=== PATIENT | female | born 1970 | race Caucasian/White ===

== ENCOUNTER 2018-01-04 09:46 | Emergency (ER) | payer OTHER ==
[~2018-01-04] VITALS: Ht 157.5 cm; Wt 115.7 kg
[~2018-01-04 09:46] MED LIST: AGM875T PO; ALBU2.5V4 IH; BUME2TAB3 PO; BUPR300T51 PO; CLOT15CR4 TOP; DIPH50CA33 PO; DOXY100C2 PO; FLUO20CA42 PO; HYDR-3454 PO; HYDR-757 PO; NAPR-243 PO; ONDAN4ODT PO; OXYB5TAB9 PO; PRD20T PO; RNT150T PO; ZLP10T PO; [UNRECOGNIZED DRUG - CODE] IH
[2018-01-04] MEDS ORDERED: diphenhydrAMINE 50 MG/ML INJ (BENADRYL) IM ONE (11:30)
[2018-01-04] MEDS ORDERED: PROCHLORPERAZINE 10 MG/2ML INJ (COMPAZINE) IM ONE (11:30)
[2018-01-04] MEDS ORDERED: KETOROLAC 60 MG/2 ML VIAL IM ONE (11:30)
--- NOTE | 2018-01-04 11:33 | ED Headache ---
General Chief Complaint: Head/Cervical Problems Stated Complaint: HEADACHE,VOMITTING Nursing Triage Note: Pt reports headache since 0700. Pt also reports nausea Nursing Sepsis Screen: No Definite Risk Source: patient Exam Limitations: no limitations History of Present Illness Date Seen by Provider: Jan 04, 2018 Time Seen by Provider: 11:30 Initial Comments to ER with a headache since awakening at 0700 this morning. She vomited once. She states that the headache was rated at about a 7 out of 10 upon awakening. She thought she could go back to bed and feel better. She then woke up at about 9 AM with worsening headache. Decided she needed to come here. No history of headaches. She's had chills. her description is not of a thunderclap style headache. currently, she rates the pain at 4 out of 10 despite no treatment Timing/Duration: 4-6 hours Severity/Quality: moderate Location: global Prior Headaches/Recent Trauma: no recent headache/trauma Associated Symptoms: No confusion, No fatigue, No facial pain; fever/chills ( chills but no fever), flushing (flushed initially), nausea/vomiting; No seizures , No sinus infection, No stiff neck Allergies and Home Medications Allergies Coded Allergies: sulfamethoxazole (Unverified Allergy, Unknown, HIVES, 03/25/08) trimethoprim (Unverified Allergy, Unknown, HIVES, 03/25/08) Home Medications Albuterol Sulfate 2.5 Mg/3 Ml Vial.neb, 2.5 MG IH TID PRN for SHORTNESS OF BREATH, (Reported) Bupropion Hcl 300 Mg Tab.sr.24h, 300 MG PO DAILY, (Reported) Fluoxetine HCl 20 Mg Capsule, 20 MG PO DAILY, (Reported) Formoterol Fumarate 12 Mcg Inhp, 1 CAP IH UD, (Reported) Hydrocodone/Acetaminophen 1 Each Tablet, 1 EACH PO Q4H 1-2 tabs every 4-6 hours as needed for pain Prescribed by: CAROLEE FUENTES on 05/11/15 1021 Oxybutynin Chloride 5 Mg Tablet, 5 MG PO BID, (Reported) Patient Home Medication List Home Medication List Reviewed: Yes Review of Systems Constitutional: see HPI, chills Eyes: No Symptoms Reported; Denies Blurred Vision, Denies Foreign Body Sensation, Denies Pain Ears, Nose, Mouth, Throat: no symptoms reported Respiratory: no symptoms reported Cardiovascular: no symptoms reported Gastrointestinal: No abdominal pain; nausea, vomiting Genitourinary: no symptoms reported Musculoskeletal: no symptoms reported Skin: no symptoms reported Psychiatric/Neurological: See HPI, Headache Past Tdeixoh-Ushqsj-Kwdnlj Hx Patient Social History Alcohol Use: Denies Use Recreational Drug Use: Yes (marijuana) Smoking Status: Current Everyday Smoker Type Used: Cigarettes Recent Foreign Travel: No Contact w/Someone Who Travel: No Recent Infectious Disease Expo: No Recent Hopitalizations: Yes Immunizations Up To Date Tetanus Booster (TDap): Unknown Date of Pneumonia Vaccine: Mar 11, 1990 Past Medical History Surgeries: Yes (TUBAL LIGATION, BUNIONECTOMY, , VAGINAL SKIN REMOVAL) Appendectomy, Section, Orthopedic, Tubal Ligation Respiratory: Yes COPD Currently Using CPAP: Yes Currently Using BIPAP: Yes Cardiac: No Neurological: No Reproductive Disorders: No 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 Sexually Transmitted Disease: No HIV/AIDS: No Gastrointestinal: No Musculoskeletal: No Endocrine: No Cancer: No Psychosocial: Yes Anxiety, Depression Integumentary: No Blood Disorders: No Adverse Reaction/Blood Tranf: No Family Medical History Arthritis 19 FATHER 19 MOTHER Asthma 19 FATHER 19 MOTHER Cardiovascular disease 19 FATHER 19 MOTHER Completed stroke 19 FATHER Hypercholesterolemia 19 MOTHER Hypertension 19 MOTHER Kidney disease 19 MOTHER Myocardial infarction 19 MOTHER Physical Exam Vital Signs Vital Signs - First Documented 01/04/18 09:56 Temp 98.2 Pulse 88 Resp 18 B/P (MAP) 132/91 (105) Pulse Ox 98 O2 Delivery Room Air Capillary Refill : Less Than 3 Seconds Height, Weight, BMI Height: 5'2.00" Weight: 255lbs. 6.0oz. 115.568571rk; BMI Method:Actual General Appearance: WD/WN, no apparent distress HEENT: PERRL/EOMI, normal ENT inspection, TMs normal Neck: non-tender, full range of motion Cardiovascular: regular rate, rhythm, no murmur Respiratory: normal breath sounds, no respiratory distress, no accessory muscle use Extremities: normal range of motion, non-tender Psychiatric: alert, oriented x 3 Crainal Nerves: normal hearing, normal speech, PERRL Skin: normal color, warm/dry Comments she has no neurologic deficit Progress/Results/Core Measures Results/Orders My Orders Orders - ERYN CARDENAS APRN Ketorolac Injection (Toradol Injection) (01/04/18 11:30) Prochlorperazine Injection (Compazine In (01/04/18 11:30) Diphenhydramine Injection (Benadryl Inje (01/04/18 11:30) Ct Head Wo (01/04/18 11:26) Medications Given in ED Current Medications Medications Dose Ordered Sig/Dale Route Start Time Stop Time Status Last Admin Dose Admin Diphenhydramine HCl 25 mg ONCE ONCE IM 01/04/18 11:30 01/04/18 11:31 DC 01/04/18 11:43 25 MG Ketorolac Tromethamine 60 mg ONCE ONCE IM 01/04/18 11:30 01/04/18 11:31 DC 01/04/18 11:43 60 MG Prochlorperazine Edisylate 10 mg ONCE ONCE IM 01/04/18 11:30 01/04/18 11:31 DC 01/04/18 11:43 10 MG Vital Signs/I&O 01/04/18 09:56 Temp 98.2 Pulse 88 Resp 18 B/P (MAP) 132/91 (105) Pulse Ox 98 O2 Delivery Room Air Blood Pressure Mean: 105 Departure Communication (Admissions) 1303-alert and oriented feeling much better. Pain is now rated at 1 out of 10. No nausea or vomiting. No neurologic deficit, moves all extremities. No nuchal rigidity, very talkative and laughing and well-appearing. CT imaging was done within 6 hours of onset of headache so if this would have been the subarachnoid , this would likely have been seen on imaging Impression Primary Impression: Headache Disposition: 01 HOME, SELF-CARE Condition: Stable Departure-Patient Inst. Decision time for Depature: 12:59 Referrals: NO,LOCAL PHYSICIAN (PCP/Family) Primary Care Physician Patient Instructions: Headache, Adult (DC) Add. Discharge Instructions: 1. Return to ER for any concerns 2. Follow-up with your doctor next week 3.All discharge instructions reviewed with patient and/or family. Voiced understanding. ERYN CARDENAS APRN Jan 04, 2018 11:33
--- NOTE | 2018-01-04 12:42 | Diagnostic Imaging Report ---
PROCEDURE: CT head without contrast. TECHNIQUE: Multiple contiguous axial images were obtained through the brain without the use of intravenous contrast. DATE: January 04, 2018. COMPARISON: None. INDICATION: 47-year-old female, headaches and vomiting. FINDINGS: The ventricles and cerebral spinal fluid spaces are of normal size and configuration for the patient's age. There is no mass effect or midline shift. There is no acute intracranial hemorrhage. There is no abnormal extra-axial fluid collection. The visualized portions of the paranasal sinuses, mastoid air cells and middle ears are well aerated. IMPRESSION: 1. No identified acute intracranial abnormality. Dictated by: Dictated on workstation # [id number]
[2018-01-04 13:05] VITALS: BP 123/78
--- OUTSIDE RECORDS SUMMARY | 2018-01-04 18:17 | XMS REPORT ---
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 Name Role Phone CANDIS VILLAGRAN Unavailable PROBLEMS Type Condition ICD9-CM Code IKT33-FC Code Onset Dates Condition Status SNOMED Code Problem Benign paroxysmal positional vertigo 386.11 Active 867187440 Problem Nausea alone 787.02 Active [id number] ALLERGIES Substance Reaction Event Type Date Status Sulfa (sulfonamide Antibiotics) Swelling Non Drug Allergy October, Active SOCIAL HISTORY Never Assessed PLAN OF CARE Activity Details Follow Up prn Reason: VITAL SIGNS Height 62 in 2016-10-20 Weight 221 lbs 2016-10-20 Temperature 97.4 degrees Fahrenheit 2016-10-20 Heart Rate 92 bpm 2016-10-20 Respiratory Rate 18 2016-10-20 BMI 40.42 kg/m2 2016-10-20 Blood pressure systolic 132 mmHg 2016-10-20 Blood pressure diastolic 74 mmHg 2016-10-20 MEDICATIONS Medication Instructions Dosage Frequency Start Date End Date Duration Status PredniSONE 20 MG Orally Once a day 2 tablet 24h October, October, 5 days Active BuSpar Active Prozac Active RESULTS Name Result Date Reference Range Xray : Foot, Left 3 views (IN HOUSE) 2016-10-20 PROCEDURES Procedure Date Ordered Result Body Site X-RAY EXAM OF FOOT October 20, 2016 IMMUNIZATIONS No Known Immunizations MEDICAL (GENERAL) HISTORY Type Description Date Surgical History appendectomy Surgical History section Surgical History orthopedic surgery Surgical History wisdom teeth extraction Surgical History bunionectomy
== END 2018-01-04 13:05 | disposition home or self-care (01) ==
LOC: EDUNIT# 09:46 → ER 09:48
DX: R51 Headache (principal); J44.9 Chronic obstructive pulmonary disease, unspecified; F41.9 Anxiety disorder, unspecified; F32.9 Major depressive disorder, single episode, unspecified; F12.10 Cannabis abuse, uncomplicated; F17.210 Nicotine dependence, cigarettes, uncomplicated; Z98.51 Tubal ligation status; Z90.89 Acquired absence of other organs; Z87.59 Personal history of other complications of pregnancy, childbirth and the puerperium; Z82.49 Family history of ischemic heart disease and other diseases of the circulatory system; Z88.2 Allergy status to sulfonamides; Z88.8 Allergy status to other drugs, medicaments and biological substances; Z79.51 Long term (current) use of inhaled steroids
CPT/HCPCS: 70450; 96372

== ENCOUNTER 2019-05-24 13:37 | Emergency (ER) | payer OTHER ==
[~2019-05-24] VITALS: Ht 157 cm; Wt 102.0 kg
[~2019-05-24 13:37] MED LIST changes: -BUME2TAB3 PO; +BUME2TAB7 PO; -HYDR-3454 PO; +HYDR-3455 PO
[2019-05-24] MEDS ORDERED: RX-ALBUTEROL INHALER (PROAIR) 8.5 GM IH STA (14:12)
--- NOTE | 2019-05-24 14:39 | ED Cough/URI ---
General Chief Complaint: Cough/Cold/Flu Symptoms Stated Complaint: COUGH / CHILLS / SORE THROAT Nursing Triage Note: PT TO ED W/ C/O COUGH, CONGESTION, CHILLS, SORE THROAT ONSET YESTERDAY. REPORTS HX OF COPD Sepsis Screen: No Definite Risk History of Present Illness Date Seen by Provider: May 24, 2019 Time Seen by Provider: 13:55 Initial Comments 39-year-old female presents for cough, respiratory congestion, sore throat and chills over the last 24-48 hours. She has a history of COPD and is out of her albuterol. She reports clear productive cough. No fever. Timing/Duration: yesterday Severity/Quality: productive cough Prior Episodes/Possible Cause: occasional episodes Associated Symptoms: cough, fever/chills, muscle aches Allergies and Home Medications Allergies Coded Allergies: sulfamethoxazole (Unverified Allergy, Unknown, HIVES, 03/25/08) trimethoprim (Unverified Allergy, Unknown, HIVES, 03/25/08) Home Medications Albuterol Sulfate 2.5 Mg/3 Ml Vial.neb, 2.5 MG IH TID PRN for SHORTNESS OF BREATH, (Reported) Bupropion Hcl 300 Mg Tab.sr.24h, 300 MG PO DAILY, (Reported) Fluoxetine HCl 20 Mg Capsule, 20 MG PO DAILY, (Reported) Formoterol Fumarate 12 Mcg Inhp, 1 CAP IH UD, (Reported) Hydrocodone/Acetaminophen 1 Each Tablet, 1 EACH PO Q4H 1-2 tabs every 4-6 hours as needed for pain Prescribed by: CAROLEE FUENTES on 05/11/15 1021 Oxybutynin Chloride 5 Mg Tablet, 5 MG PO BID, (Reported) Prednisone 20 Mg Tab, 40 MG PO DAILY Prescribed by: ROS RAY on 05/24/19 1445 Patient Home Medication List Home Medication List Reviewed: Yes Review of Systems Review of Systems Constitutional: no symptoms reported, see HPI Respiratory: see HPI, phlegm Cardiovascular: no symptoms reported, see HPI; No chest pain All Other Systems Reviewed Negative Unless Noted: Yes Past Cxpzkcn-Mkvooh-Vfheko Hx Past Med/Social Hx: Reviewed Nursing Past Med/Soc Hx Patient Social History Alcohol Use: Denies Use Recreational Drug Use: Yes Drug of Choice: MARIJUANA Smoking Status: Current Everyday Smoker Type Used: Cigarettes Recent Foreign Travel: No Contact w/Someone Who Travel: No Recent Infectious Disease Expo: No Recent Hopitalizations: Yes Immunizations Up To Date Tetanus Booster (TDap): Unknown Date of Pneumonia Vaccine: Mar 11, 1990 Past Medical History Surgeries: Yes (TUBAL LIGATION, BUNIONECTOMY, , VAGINAL SKIN REMOVAL) Appendectomy, Section, Orthopedic, Tubal Ligation Respiratory: Yes COPD Currently Using CPAP: Yes Currently Using BIPAP: Yes Cardiac: No Neurological: No 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 Sexually Transmitted Disease: No HIV/AIDS: No Gastrointestinal: No Musculoskeletal: No Endocrine: No Cancer: No Psychosocial: Yes Anxiety, Depression Integumentary: No Blood Disorders: No Adverse Reaction/Blood Tranf: No Family Medical History Arthritis 19 FATHER 19 MOTHER Asthma 19 FATHER 19 MOTHER Cardiovascular disease 19 FATHER 19 MOTHER Completed stroke 19 FATHER Hypercholesterolemia 19 MOTHER Hypertension 19 MOTHER Kidney disease 19 MOTHER Myocardial infarction 19 MOTHER Physical Exam Vital Signs - First Documented 05/24/19 05/24/19 13:44 14:13 Temp 37.0 Pulse 102 Resp 20 B/P (MAP) 132/78 (96) Pulse Ox 93 O2 Delivery Room Air Capillary Refill : Less Than 3 Seconds Height: 5'2.00" Weight: 255lbs. 6.0oz. 115.682390lm; 41.00 BMI Method:Actual General Appearance: WD/WN, no apparent distress Eyes: Bilateral Eye Normal Inspection, Bilateral Eye PERRL, Bilateral Eye EOMI HEENT: PERRL/EOMI, normal ENT inspection, TMs normal, pharynx normal; No pharyngeal erythema, No tonsillar exudate Neck: full range of motion, supple, normal inspection, lymphadenopathy (R), lymphadenopathy (L) Respiratory: chest non-tender, normal breath sounds, wheezing Cardiovascular: normal peripheral pulses, regular rate, rhythm Gastrointestinal: normal bowel sounds, non tender, soft Extremities: normal range of motion, non-tender, normal inspection Neurologic/Psychiatric: no motor/sensory deficits, alert, normal mood/affect, oriented x 3 Skin: normal color, warm/dry Progress/Results/Core Measures Suspected Sepsis Recent Fever Within 48 Hours: No Infection Criteria Present: None New/Unexplained Altered Menta: No Sepsis Screen: No Definite Risk SIRS Temperature: Pulse: 102 Respiratory Rate: 20 Blood Pressure 132 /78 Mean: 96 Results/Orders Lab Results Laboratory Tests Test 05/24/19 14:00 Range/Units Group A Streptococcus Screen NEGATIVE NEGATIVE Micro Results Microbiology 05/24/19 Influenza Types A,B Antigen (ADRIAN) - Final, Complete My Orders Orders - ROS RAY Rapid Strep A Screen (05/24/19 13:45) Influenza A And B Antigens (05/24/19 13:45) Rx-Albuterol Inhaler (Rx-Proair) (05/24/19 14:12) Vital Signs/I&O 05/24/19 05/24/19 05/24/19 13:44 14:13 14:52 Temp 37.0 Pulse 102 101 Resp 20 20 B/P (MAP) 132/78 (96) 128/80 Pulse Ox 93 95 O2 Delivery Room Air Room Air Capillary Refill : Less Than 3 Seconds Blood Pressure Mean: 96 POS Departure Impression Primary Impression: Bronchitis Disposition: 01 HOME, SELF-CARE Condition: Improved Departure-Patient Inst. Decision time for Depature: 14:40 Referrals: NO,LOCAL PHYSICIAN (PCP/Family) Primary Care Physician Patient Instructions: Acute Bronchitis, Adult (DC), Viral Upper Respiratory I nfection, Adult (DC) Add. Discharge Instructions: Mucinex one tablet twice daily with food. Take prednisone as prescribed for the next 3 days. Use the inhaler 2 puffs waiting 5 minutes between puffs, every 4 hours. Alternate between Tylenol 650 mg and ibuprofen 600 mg every 4 hours for pain or fever. To the emergency department for worsening of symptoms, temperature greater than 101 not relieved by Tylenol and ibuprofen or new, urgent health care needs. All discharge instructions reviewed with patient and/or family. Voiced understanding. Scripts Prednisone (Prednisone) 20 Mg Tab 40 MG PO DAILY, #6 TAB 0 Refills Prov: ROS RAY 05/24/19 ROS RAY May 24, 2019 14:39 POS
[2019-05-24] MEDS ORDERED: PRD20T PO (14:45)
[2019-05-24 14:52] VITALS: BP 128/80
== END 2019-05-24 14:52 | disposition home or self-care (01) ==
LOC: EDUNIT# 13:37 → ER 13:39
DX: J40 Bronchitis, not specified as acute or chronic (principal); J44.0 Chronic obstructive pulmonary disease with (acute) lower respiratory infection; F41.9 Anxiety disorder, unspecified; F32.9 Major depressive disorder, single episode, unspecified; F17.210 Nicotine dependence, cigarettes, uncomplicated; Z90.49 Acquired absence of other specified parts of digestive tract; Z98.51 Tubal ligation status; Z99.89 Dependence on other enabling machines and devices; Z88.1 Allergy status to other antibiotic agents; Z88.2 Allergy status to sulfonamides; Z82.49 Family history of ischemic heart disease and other diseases of the circulatory system
CPT/HCPCS: 87430; 87804